=== PATIENT | male | born 1945 | race Caucasian/White ===

== ENCOUNTER 2016-09-10 05:30 | Day surgery (SDC) | payer MEDICARE ==
[~2016-09-10] VITALS: Ht 177.8 cm; Wt 98.9 kg
--- NOTE | ~2016-09-10 | CATH ---
Cardiac Diagnostic Report Demographics Patient Name SHANELL Linder Gender Male Date of 1945 Age 71 year(s) Patient Number [id number] Date of Study 09/10/2016 Visit Number [id number] Room Number Corporate ID Ht 177.8 cm Wt 99.79 kg Accession Number [id number] BSA 2.17 m kg/m Referring Chong Linder Primary Physician Physician MD Daysi Chaudhary MD Secondary Physician Physician Clif Diagnostic Neena GUERRERO Assisting Physician Physician Clif Interventional Neena GUERRERO Physician Critical Care Physician Physician Clif Findings and Conclusions Diagnostic Findings and Conclusion Non-obstructive CAD Widely patent stent in LAD LVEDP = 4 mmHg Diagnostic Recommendations Ongoing risk factor modification. Medical management. Procedure Description The patient was brought to the diagnostic cardiac catheterization laboratory in the fasting, non-sedated state. Informed consent was obtained in the written and verbal form after the risks and benefits were explained. The patient had no further questions and agreed to proceed. The planned puncture-incision site(s) were shaved and prepped with ChloraPrep and draped in the usual sterile manner. Conscious sedation, supplemental oxygen, and pain control medications were delivered by a registered nurse under physician guidance. Surface ECG rhythm, blood pressure measurement, and pulse oximetry were monitored throughout the procedure. Arterial access. The right radial access site was infiltrated with lidocaine. The vessel was entered with the Seldinger technique. A 6 FR sheath was advanced into the vessel and used for catheter placement. Selective left coronary angiography. A TIG catheter was advanced into the left coronary vessel ostium under Fluoroscopic guidance. Contrast was injected by hand. Images were obtained in multiple projections. Selective right coronary angiography. A TIG catheter was first attempted, but then a MPA-1 catheter was advanced into the right coronary vessel ostium under fluoroscopic guidance. Contrast was injected by hand. Images were obtained in multiple projections. Left heart catheterization. A MPA-1 catheter was advanced across the aortic valve to the left ventricle under fluoroscopic guidance. Resting hemodynamics were obtained. Arterial artery hemostasis was achieved using 10 cc air in a TR Band. The patient was transferred to a regular nursing floor via cart accompanied by a nurse. The patient left the laboratory in stable condition. Diagnostic Cath Status: Elective Procedure Procedure Type Diagnostic procedure:Angiography:, Coronary Angios w/[facility] Indications: CAD, Early family history of CAD, Dyspnea with exertion, Angina, Abnormal nuclear perfusion study, Obesity, Hyperlipidemia, Hypertension and Prior PCI with stent placement. The procedure was explained in detail to the patient. Risks, complications and alternative treatments were reviewed. Written consent was obtained. Medications Reviewed with Patient prior to Procedure. Complications: No Complication. Angiographic Findings Dominance: Right Cardiac Arteries and Lesion Findings LMCA: Normal (0% Stenosis). LAD: Abnormal.There is a previous stent on Mid LAD showing wide patency. Lesion on Prox LAD: 20% stenosis . LCx: Abnormal. Lesion on Mid CX: 20% stenosis . Lesion on Dist CX: 40% stenosis . RCA: Abnormal. Lesion on Mid RCA: 30% stenosis . Ramus: Abnormal. Lesion on Ramus: Mid subsection.30% stenosis . Coronary Tree Procedure Data Procedure Date Date: 09/10/2016Start: 07:03 End: 07:28 Entry Locations - Percutaneous access was performed through the Right Radial artery (Primary location). A 6 Fr sheath was inserted. Hemostasis was successfully obtained using a TR band. Procedure Medications Order and Administration + + +-------+-------+ !Time !Medication !Dosage !Route ! + + +-------+-------+ !09/10/2016 !Fentanyl !25 mcg !I.V. ! !06:59 ! ! ! ! + + +-------+-------+ !09/10/2016 !Versed !2 mg !I.V. ! !06:59 ! ! ! ! + + +-------+-------+ !09/10/2016 !Oxygen !2 l/min!NC ! !07:04 ! ! ! ! + + +-------+-------+ !09/10/2016 !Fentanyl !25 mcg !I.V. ! !07:04 ! ! ! ! + + +-------+-------+ !09/10/2016 !Versed !1 mg !I.V. ! !07:04 ! ! ! ! + + +-------+-------+ !09/10/2016 !SF Radial Cocktail: 200mcg Nitro, 2.5 mg ! !I.A. ! !07:05 !Verapamil, 5000u Heparin ! ! ! + + +-------+-------+ Devices Used - F TIG CATHETERwas used for:Left coronary angiography. - A6F TIG CATHETERwas used for:Right coronary angiography.Unable to cannulate the vessel. - ACATH 6FR MPA-1 CATHETER 100CMwas used for:LV Pressures. - ACATH 6FR MPA-1 CATHETER 100CMwas used for:Right coronary angiography. Contrast Material - Isovue 06003 ml Fluoroscopy Time: Diagnostic: 3:48 minutes. Total: 3:48 minutes. Fluoroscopy Dose: Diagnostic: 812 mGy. Total: 812 mGy. Estimated Blood Loss: 5 ml. Medical History Performed Procedures and Imaging Results - Stress testing with SPECT MPIwas performed on 08/31/2016. Results were: Positive. Risk/Extent of ischemia was: Low risk. Allergies - Other:(Advil, Niacin). Risk Factors The patient risk factors include:prior PCI on 03/08/2012;obesity, hypertension, family history of premature CAD, last creatinine: 0.9 mg/dl, creatinine clearance: 106.26 ml/min and dyslipidemia. Admission Data Admission Date: 09/10/2016 Admission Time: 05:30 Clinical Evaluation Leading to Procedure - The patient's CAD presentation was assessed as: Unstable angina. - The patient's anginal syndrome during the past two weeks was assessed as: Class III according to the [place] [employer] Classification System (CCS). Anti-anginal medications were prescribed during the past two weeks. The medications are: Beta Blockers and Long Acting Nitrates. Diagnosed on 09/01/2016 02:00 . - The patient's CAD presentation was assessed as: Unstable angina. - The patient's anginal syndrome during the past two weeks was assessed as: Class III according to the [place] [employer] Classification System (CCS). Anti-anginal medications were prescribed during the past two weeks. The medications are: Beta Blockers and Long Acting Nitrates. Hemodynamics Condition: Rest O2 Consumption: Estimated: 239.13Heart Rate: 56 bpm Pressures (mmHg) +-----+ + !Site !Pressure ! +-----+ + !AO !93/58 (74) ! +-----+ + !LV !108/3 ,9 ! +-----+ + !AO !128/76 (104) ! +-----+ + Shunts Oxygen Values O2 Consumption 239.13 Discharge Data Discharge Date: 09/10/2016 Hospital Status: Outpatient Signatures
== END 2016-09-10 11:18 | disposition home or self-care (01) ==
LOC: SSS 05:30
PROC: 4A023N7 Measurement of Cardiac Sampling and Pressure, Left Heart, Percutaneous Approach (ICD-10-PCS; principal; 2016-09-10)
DX: I25.110 Atherosclerotic heart disease of native coronary artery with unstable angina pectoris (principal); I10 Essential (primary) hypertension; E78.5 Hyperlipidemia, unspecified; Z82.49 Family history of ischemic heart disease and other diseases of the circulatory system; F41.9 Anxiety disorder, unspecified; F32.9 Major depressive disorder, single episode, unspecified; G47.00 Insomnia, unspecified; N40.0 Benign prostatic hyperplasia without lower urinary tract symptoms; G89.29 Other chronic pain; Z79.82 Long term (current) use of aspirin; Z98.890 Other specified postprocedural states